=== PATIENT | female | born 1955 | race Caucasian/White ===

== ENCOUNTER 2021-05-10 06:00 | Outpatient (RCR) | payer MEDICARE, SELFPAY | END 2021-06-05 23:59 | disposition home or self-care (01) | LOC: TPT 06:00 | PROVIDERS: PCP Nurse Practitioner; Visit Provider Internal Medicine | DX: M99.09 Segmental and somatic dysfunction of abdomen and other regions (principal); M79.10 Myalgia, unspecified site; M54.31 Sciatica, right side | CPT/HCPCS: 97110; 97162 ==

== ENCOUNTER 2021-05-22 06:00 | Outpatient (RCR) | payer MEDICARE, SELFPAY | END 2021-06-05 23:59 | disposition home or self-care (01) | LOC: TPT 06:00 | PROVIDERS: PCP Nurse Practitioner; Referring Provider Nurse Practitioner Family; Visit Provider Nurse Practitioner Family | DX: M25.511 Pain in right shoulder (principal) | CPT/HCPCS: 97110; 97162 ==

== ENCOUNTER 2021-06-06 06:00 | Outpatient (RCR) | payer MEDICARE, SELFPAY | END 2021-07-05 23:59 | disposition home or self-care (01) | LOC: TPT 06:00 | PROVIDERS: PCP Nurse Practitioner; Visit Provider Internal Medicine | DX: M25.511 Pain in right shoulder (principal) | CPT/HCPCS: 97110; 97140 ==

== ENCOUNTER 2022-01-04 09:21 | Outpatient (CLI) | payer MEDICARE, MEDICAID, SELFPAY ==
--- NOTE | 2022-01-04 10:19 | XR_ITS ---
WS: [id number] Exam: XR hip RT 2-3V wo/w pel* [id number] Date/Time of Exam: 01/04/2022 10:29 AM Reason For Exam: HIP JOINT PAIN RIGHT Comparison 08/17/2018. No fracture or dislocation. Moderate degenerative narrowing of the joint compartment which has been p rogressive. Normal soft tissues. XR/XR hip RT 2-3V wo/w pel* [id number] IMPRESSION: 1. Moderate osteoarthritis which is been progressive. No fracture or dislocatio n.
== END 2022-01-04 09:22 | disposition home or self-care (01) ==
PROVIDERS: PCP Nurse Practitioner; Visit Provider Nurse Practitioner Family
DX: M16.11 Unilateral primary osteoarthritis, right hip (principal)
CPT/HCPCS: 73502

== ENCOUNTER 2022-01-16 13:14 | Outpatient (CLI) | payer MEDICARE, MEDICAID, SELFPAY ==
--- NOTE | 2022-01-16 13:29 | XR_ITS ---
WS: [email or web address] Right knee, 3 views, 01/16/2022 Clinical Data: PAIN IN R KNEE Comparison: Right knee, 08/17/2018. Findings: There is medial joint compartment narrowing with an osteophyte of the medial tibial plateau. There is posterior right patellar spurring. No fractures or dislocations are seen. The soft tissues are normal. XR/XR knee RT 3V* [id number] Impression: Mild osteoarthritis of the right knee. Kellgren-Renato Classification: grade 2 (minimal): definite osteophytes and p ossible joint space narrowing
== END 2022-01-16 13:15 | disposition home or self-care (01) ==
PROVIDERS: PCP Nurse Practitioner; Visit Provider Family Medicine
DX: M17.11 Unilateral primary osteoarthritis, right knee
CPT/HCPCS: 73562

== ENCOUNTER → 2022-02-05 12:51 | Outpatient (BNVA) | payer MEDICARE, MEDICAID, SELFPAY | PROVIDERS: PCP Nurse Practitioner; Referring Provider Nurse Practitioner Family; Visit Provider Orthopaedic Surgery | DX: M16.11 Unilateral primary osteoarthritis, right hip (principal) | CPT/HCPCS: 99203; 99204 ==

== ENCOUNTER 2022-02-20 06:00 | Outpatient (RCR) | payer MEDICARE, MEDICAID, SELFPAY | END 2022-03-05 23:59 | disposition home or self-care (01) | LOC: TPT 06:00 | PROVIDERS: PCP Nurse Practitioner; Referring Provider Nurse Practitioner Family; Visit Provider Nurse Practitioner Family | DX: M25.511 Pain in right shoulder (principal) | CPT/HCPCS: 97110; 97163 ==

== ENCOUNTER 2022-03-06 06:00 | Outpatient (RCR) | payer MEDICARE, MEDICAID, SELFPAY | END 2022-04-04 23:59 | disposition home or self-care (01) | LOC: TPT 06:00 | PROVIDERS: PCP Nurse Practitioner; Referring Provider Nurse Practitioner Family; Visit Provider Nurse Practitioner Family | DX: M25.511 Pain in right shoulder (principal) | CPT/HCPCS: 97110; 97140 ==

== ENCOUNTER 2022-04-05 06:00 | Outpatient (RCR) | payer MEDICARE, MEDICAID, SELFPAY | END 2022-05-05 23:59 | disposition home or self-care (01) | LOC: TPT 06:00 | PROVIDERS: PCP Nurse Practitioner; Referring Provider Nurse Practitioner Family; Visit Provider Nurse Practitioner Family | DX: M25.511 Pain in right shoulder (principal) | CPT/HCPCS: 97110; 97140; 97164 ==

== ENCOUNTER 2022-05-24 10:12 | Outpatient (CLI) | payer MEDICARE, MEDICAID, SELFPAY ==
--- NOTE | 2022-05-24 10:24 | MM_ITS ---
WS: [id number] BILATERAL SCREENING DIGITAL TOMOSYNTHESIS MAMMOGRAM WITH CAD HISTORY: SCREENING COMPARISON: 04/26/2020 and 10/15/2017 Bilateral CC and MLO views with tomosynthesis and synthetic mammography submitted. Computer aided det ection analyzed. Breast composition: The breasts are heterogeneously dense, which may obscure small masses. No suspici ous masses, microcalcifications or architectural distortion. Benign calcifications in each breast. MM/[place] [id number] IMPRESSION: BI-RADS: 2-Benign FOLLOW UP: 1 Year Follow-up
== END 2022-05-24 10:13 | disposition home or self-care (01) ==
LOC: RADSHAW 10:12
PROVIDERS: PCP Nurse Practitioner Family; Visit Provider Nurse Practitioner Family
DX: Z12.31 Encounter for screening mammogram for malignant neoplasm of breast (principal)
CPT/HCPCS: 77063; 77067

== ENCOUNTER 2022-06-05 06:00 | Outpatient (RCR) | payer MEDICARE, MEDICAID, SELFPAY | END 2022-06-05 23:59 | disposition home or self-care (01) | LOC: TPT 06:00 | PROVIDERS: PCP Nurse Practitioner Family; Visit Provider Orthopaedic Surgery | DX: Z47.1 Aftercare following joint replacement surgery (principal); Z96.641 Presence of right artificial hip joint | CPT/HCPCS: 97162 ==

== ENCOUNTER 2022-06-06 06:00 | Outpatient (RCR) | payer MEDICARE, MEDICAID, SELFPAY | END 2022-07-05 23:59 | disposition home or self-care (01) | LOC: TPT 06:00 | PROVIDERS: PCP Nurse Practitioner Family; Visit Provider Orthopaedic Surgery | DX: Z47.1 Aftercare following joint replacement surgery (principal); Z96.641 Presence of right artificial hip joint | CPT/HCPCS: 97110 ==

== ENCOUNTER 2022-07-06 06:00 | Outpatient (RCR) | payer MEDICARE, MEDICAID, SELFPAY | END 2022-08-05 23:59 | disposition home or self-care (01) | LOC: TPT 06:00 | PROVIDERS: PCP Nurse Practitioner Family; Visit Provider Orthopaedic Surgery | DX: Z47.1 Aftercare following joint replacement surgery (principal); Z96.641 Presence of right artificial hip joint | CPT/HCPCS: 97110 ==

== ENCOUNTER 2022-07-10 06:00 | Outpatient (RCR) | payer MEDICARE, MEDICAID, SELFPAY | END 2022-08-05 23:59 | disposition home or self-care (01) | LOC: TPT 06:00 | PROVIDERS: PCP Nurse Practitioner Family; Visit Provider Nurse Practitioner Family | DX: Z47.1 Aftercare following joint replacement surgery (principal); Z96.641 Presence of right artificial hip joint | CPT/HCPCS: 97110; 97163 ==

== ENCOUNTER → 2022-07-12 10:55 | Outpatient (BNVA) | payer MEDICARE, MEDICAID, SELFPAY | PROVIDERS: PCP Nurse Practitioner Family; Referring Provider Nurse Practitioner Family; Visit Provider Podiatrist Foot & Ankle Surgery | DX: M20.42 Other hammer toe(s) (acquired), left foot (principal); L84 Corns and callosities | CPT/HCPCS: 99203 ==

== ENCOUNTER 2022-08-06 06:00 | Outpatient (RCR) | payer MEDICARE, MEDICAID, SELFPAY | END 2022-09-04 23:59 | disposition home or self-care (01) | LOC: TPT 06:00 | PROVIDERS: PCP Nurse Practitioner Family; Visit Provider Orthopaedic Surgery | DX: Z47.1 Aftercare following joint replacement surgery (principal); Z96.641 Presence of right artificial hip joint | CPT/HCPCS: 97110 ==

== ENCOUNTER 2022-08-06 06:00 | Outpatient (RCR) | payer MEDICARE, MEDICAID, SELFPAY | END 2022-09-04 23:59 | disposition home or self-care (01) | LOC: TPT 06:00 | PROVIDERS: PCP Nurse Practitioner Family; Visit Provider Nurse Practitioner Family | DX: Z47.1 Aftercare following joint replacement surgery (principal); Z96.641 Presence of right artificial hip joint | CPT/HCPCS: 97110; 97140 ==

== ENCOUNTER → 2022-08-20 10:25 | Outpatient (BNVA) | payer MEDICARE, MEDICAID, SELFPAY | PROVIDERS: PCP Nurse Practitioner Family; Visit Provider Podiatrist Foot & Ankle Surgery | DX: M20.42 Other hammer toe(s) (acquired), left foot (principal) | CPT/HCPCS: 28011; A6219 ==

== ENCOUNTER 2022-09-05 06:00 | Outpatient (RCR) | payer MEDICARE, MEDICAID, SELFPAY | END 2022-10-05 23:59 | disposition home or self-care (01) | LOC: TPT 06:00 | PROVIDERS: PCP Nurse Practitioner Family; Visit Provider Nurse Practitioner Family | DX: M25.511 Pain in right shoulder (principal) | CPT/HCPCS: 97110; 97140 ==

== ENCOUNTER 2022-09-05 06:00 | Outpatient (RCR) | payer MEDICARE, MEDICAID, SELFPAY | END 2022-10-05 23:59 | disposition home or self-care (01) | LOC: TPT 06:00 | PROVIDERS: PCP Nurse Practitioner Family; Visit Provider Orthopaedic Surgery | DX: Z47.1 Aftercare following joint replacement surgery (principal); Z96.641 Presence of right artificial hip joint | CPT/HCPCS: 97110 ==

== ENCOUNTER 2022-10-06 06:00 | Outpatient (RCR) | payer MEDICARE, MEDICAID, SELFPAY | END 2022-11-05 23:59 | disposition home or self-care (01) | LOC: TPT 06:00 | PROVIDERS: PCP Nurse Practitioner Family; Visit Provider Nurse Practitioner Family | DX: Z47.1 Aftercare following joint replacement surgery (principal); Z96.641 Presence of right artificial hip joint | CPT/HCPCS: 97110; 97140 ==

== ENCOUNTER 2023-05-15 10:13 | Outpatient (CLI) | payer MEDICARE, MEDICAID, SELFPAY ==
--- NOTE | 2023-05-15 10:28 | XR_ITS ---
WS: [email or web address] XR shoulder LT min 2V* [id number] REASON FOR EXAM: L SHOULDER JOINT PAIN FINDINGS: No fracture or focal bone lesion. Acromioclavicular joint space is intact and relatively well preserved. Mild subchondral sclerosis and osteophytosis. Glenohumeral joint space is not well demonstrated on this examination. There is mild to moderate subc hondral sclerosis and osteophytosis of the humeral head and glenoid. There is significant sclerosis and cystic change in the greater tuberosity of the humerus. IMPRESSION: Moderate osteoarthritis of the glenohumeral joint. Significant rotator cuff tendon arthropathy.
== END 2023-05-15 10:14 | disposition home or self-care (01) ==
PROVIDERS: PCP Nurse Practitioner Family; Visit Provider Nurse Practitioner Family
DX: M19.012 Primary osteoarthritis, left shoulder (principal)
CPT/HCPCS: 73030

== ENCOUNTER 2023-05-28 06:00 | Outpatient (RCR) | payer MEDICARE, MEDICAID, SELFPAY | END 2023-06-05 23:59 | disposition home or self-care (01) | LOC: TPT 06:00 | PROVIDERS: PCP Nurse Practitioner Family; Visit Provider Nurse Practitioner Family | DX: M25.512 Pain in left shoulder (principal) | CPT/HCPCS: 97110; 97140; 97163 ==

== ENCOUNTER 2023-06-06 06:00 | Outpatient (RCR) | payer MEDICARE, MEDICAID, SELFPAY | END 2023-07-05 23:59 | disposition home or self-care (01) | LOC: TPT 06:00 | PROVIDERS: PCP Nurse Practitioner Family; Visit Provider Nurse Practitioner Family | DX: M25.512 Pain in left shoulder (principal) | CPT/HCPCS: 97110; 97140 ==

== ENCOUNTER 2023-07-06 06:00 | Outpatient (RCR) | payer MEDICARE, MEDICAID, SELFPAY | END 2023-08-05 23:59 | disposition home or self-care (01) | LOC: TPT 06:00 | PROVIDERS: PCP Nurse Practitioner Family; Visit Provider Nurse Practitioner Family | DX: M25.512 Pain in left shoulder (principal); M25.551 Pain in right hip | CPT/HCPCS: 97110; 97140; 97164 ==

== ENCOUNTER 2023-08-06 06:00 | Outpatient (RCR) | payer MEDICARE, MEDICAID, SELFPAY | END 2023-09-04 23:59 | disposition home or self-care (01) | LOC: TPT 06:00 | PROVIDERS: PCP Nurse Practitioner Family; Visit Provider Nurse Practitioner Family | DX: M25.512 Pain in left shoulder (principal); M25.551 Pain in right hip | CPT/HCPCS: 97164 ==

== ENCOUNTER 2023-08-06 06:00 | Outpatient (RCR) | payer MEDICARE, MEDICAID, SELFPAY | END 2023-09-04 23:59 | disposition home or self-care (01) | LOC: TPT 06:00 | PROVIDERS: PCP Nurse Practitioner Family; Visit Provider Orthopaedic Surgery | DX: Z96.641 Presence of right artificial hip joint (principal) | CPT/HCPCS: 97110; 97140 ==

== ENCOUNTER → 2023-09-02 08:55 | Outpatient (BNVA) | payer MEDICARE, MEDICAID, SELFPAY | PROVIDERS: PCP Nurse Practitioner Family; Visit Provider Student in an Organized Health Care Education/Training Program | DX: M75.42 Impingement syndrome of left shoulder | CPT/HCPCS: 20610; 99214; J3301 ==

== ENCOUNTER 2023-09-05 06:00 | Outpatient (RCR) | payer MEDICARE, MEDICAID, SELFPAY | END 2023-10-05 23:59 | disposition home or self-care (01) | LOC: TPT 06:00 | PROVIDERS: PCP Nurse Practitioner Family; Visit Provider Orthopaedic Surgery | DX: Z47.1 Aftercare following joint replacement surgery (principal); Z96.641 Presence of right artificial hip joint | CPT/HCPCS: 97110 ==

== ENCOUNTER 2023-09-16 06:00 | Outpatient (RCR) | payer MEDICARE, MEDICAID, SELFPAY | END 2023-10-05 23:59 | disposition home or self-care (01) | LOC: TPT 06:00 | PROVIDERS: PCP Nurse Practitioner Family; Visit Provider Student in an Organized Health Care Education/Training Program | DX: M25.512 Pain in left shoulder (principal) | CPT/HCPCS: 97110; 97140; 97162 ==

== ENCOUNTER 2023-10-06 06:00 | Outpatient (RCR) | payer MEDICARE, MEDICAID, SELFPAY | END 2023-11-05 23:59 | disposition home or self-care (01) | LOC: TPT 06:00 | PROVIDERS: PCP Nurse Practitioner Family; Visit Provider Student in an Organized Health Care Education/Training Program | DX: M25.112 Fistula, left shoulder (principal) | CPT/HCPCS: 97110; 97140 ==

== ENCOUNTER 2023-10-06 06:00 | Outpatient (RCR) | payer MEDICARE, MEDICAID, SELFPAY | END 2023-11-05 23:59 | disposition home or self-care (01) | LOC: TPT 06:00 | PROVIDERS: PCP Nurse Practitioner Family; Visit Provider Orthopaedic Surgery | DX: Z47.1 Aftercare following joint replacement surgery (principal); Z96.641 Presence of right artificial hip joint | CPT/HCPCS: 97110 ==

== ENCOUNTER 2023-11-06 06:00 | Outpatient (RCR) | payer MEDICARE, MEDICAID, SELFPAY | END 2023-12-04 23:59 | disposition home or self-care (01) | LOC: TPT 06:00 | PROVIDERS: PCP Nurse Practitioner Family; Visit Provider Student in an Organized Health Care Education/Training Program | DX: M25.512 Pain in left shoulder (principal) | CPT/HCPCS: 97110; 97140 ==

== ENCOUNTER 2023-11-06 06:00 | Outpatient (RCR) | payer MEDICARE, MEDICAID, SELFPAY | END 2023-12-04 23:59 | disposition home or self-care (01) | LOC: TPT 06:00 | PROVIDERS: PCP Nurse Practitioner Family; Visit Provider Orthopaedic Surgery | DX: Z47.1 Aftercare following joint replacement surgery (principal); Z96.641 Presence of right artificial hip joint | CPT/HCPCS: 97110 ==

== ENCOUNTER 2023-12-05 06:00 | Outpatient (RCR) | payer MEDICARE, MEDICAID, SELFPAY | END 2024-01-04 23:59 | disposition home or self-care (01) | LOC: TPT 06:00 | PROVIDERS: PCP Nurse Practitioner Family; Visit Provider Student in an Organized Health Care Education/Training Program | DX: M25.512 Pain in left shoulder (principal) | CPT/HCPCS: 97110; 97140; 97162 ==

== ENCOUNTER 2023-12-05 06:00 | Outpatient (RCR) | payer MEDICARE, MEDICAID, SELFPAY | END 2024-01-04 23:59 | disposition home or self-care (01) | LOC: TPT 06:00 | PROVIDERS: PCP Nurse Practitioner Family; Visit Provider Orthopaedic Surgery | DX: Z47.1 Aftercare following joint replacement surgery (principal); Z96.641 Presence of right artificial hip joint | CPT/HCPCS: 97110 ==

== ENCOUNTER → 2023-12-30 08:19 | Outpatient (BNVA) | payer MEDICARE, MEDICAID, SELFPAY | PROVIDERS: PCP Nurse Practitioner Family; Visit Provider Student in an Organized Health Care Education/Training Program | DX: M75.42 Impingement syndrome of left shoulder (principal) | CPT/HCPCS: 20610; 99213; J3301 ==

== ENCOUNTER 2024-01-05 06:00 | Outpatient (RCR) | payer MEDICARE, MEDICAID, SELFPAY | END 2024-02-03 23:59 | disposition home or self-care (01) | LOC: TPT 06:00 | PROVIDERS: PCP Nurse Practitioner Family; Visit Provider Orthopaedic Surgery | DX: Z47.1 Aftercare following joint replacement surgery (principal); Z96.641 Presence of right artificial hip joint | CPT/HCPCS: 97110 ==

== ENCOUNTER 2024-01-05 06:00 | Outpatient (RCR) | payer MEDICARE, MEDICAID, SELFPAY | END 2024-02-03 23:59 | disposition home or self-care (01) | LOC: TPT 06:00 | PROVIDERS: PCP Nurse Practitioner Family; Visit Provider Student in an Organized Health Care Education/Training Program | DX: M25.512 Pain in left shoulder (principal) | CPT/HCPCS: 97110; 97140 ==

== ENCOUNTER 2024-01-28 10:00 | Outpatient (CLI) | payer MEDICARE, MEDICAID, SELFPAY ==
--- NOTE | 2024-01-28 10:15 | MR_ITS ---
WS: [id number] MRI LEFT SHOULDER NONCONTRAST TECHNIQUE: Sagittal T2, coronal T1, T2 and proton density imaging. Axial gradient PDE imaging. CLINICAL INFORMATION: left shoulder pain COMPARISON: None. FINDINGS: Advanced degenerative changes AC joint with narrowing of the subacromial space. Impingement distal jane praspinatus with chronic thinning. Evidence of prior rotator cuff repair. Distal supraspinatus appear s intact. Infraspinatus appears intact. Normal teres minor. Subscapularis appears intact distally. Small biceps tendon visualized in the bici pital groove. Intra-articular biceps tendon appears intact where visualized. Normal bone marrow signa l in the glenoid. IMPRESSION: 1. Advanced arthritis AC joint with narrowing of the subacromial space. 2. Prior rotator cuff repair with susceptibility artifact. 3. Rotator cuff repair appears intact. Significant chronic thinning of the distal supraspinatus. 4. Normal teres minor and subscapularis. 5. Small biceps tendon appears intact within the bicipital groove. 6. No other acute findings.
== END 2024-01-28 10:01 | disposition home or self-care (01) ==
LOC: RAD 10:03
PROVIDERS: PCP Nurse Practitioner Family; Visit Provider Student in an Organized Health Care Education/Training Program
DX: M75.42 Impingement syndrome of left shoulder (principal); M19.012 Primary osteoarthritis, left shoulder
CPT/HCPCS: 73221

== ENCOUNTER 2024-02-04 06:00 | Outpatient (RCR) | payer MEDICARE, MEDICAID, SELFPAY | END 2024-03-05 23:59 | disposition home or self-care (01) | LOC: TPT 06:00 | PROVIDERS: PCP Nurse Practitioner Family; Visit Provider Orthopaedic Surgery | DX: Z47.1 Aftercare following joint replacement surgery (principal); Z96.641 Presence of right artificial hip joint | CPT/HCPCS: 97110 ==

== ENCOUNTER 2024-02-04 06:00 | Outpatient (RCR) | payer MEDICARE, MEDICAID, SELFPAY | END 2024-03-05 23:59 | disposition home or self-care (01) | LOC: TPT 06:00 | PROVIDERS: PCP Nurse Practitioner Family; Visit Provider Student in an Organized Health Care Education/Training Program | DX: M25.512 Pain in left shoulder (principal) | CPT/HCPCS: 97110; 97140 ==

== ENCOUNTER → 2024-02-13 10:05 | Outpatient (BNVA) | payer MEDICARE, MEDICAID, SELFPAY | PROVIDERS: PCP Nurse Practitioner Family; Visit Provider Student in an Organized Health Care Education/Training Program | DX: M75.42 Impingement syndrome of left shoulder (principal); Z09 Encounter for follow-up examination after completed treatment for conditions other than malignant neoplasm | CPT/HCPCS: 99213 ==

== ENCOUNTER → 2024-03-25 14:15 | Outpatient (BNVA) | payer MEDICARE, MEDICAID, SELFPAY | PROVIDERS: PCP Nurse Practitioner Family; Visit Provider Student in an Organized Health Care Education/Training Program | DX: M75.42 Impingement syndrome of left shoulder (principal) | CPT/HCPCS: 20610; 99213; J3301 ==

== ENCOUNTER 2024-04-16 21:08 | Emergency (ER) | payer MEDICARE, MEDICAID, SELFPAY ==
[2024-04-16 21:09] VITALS: BP 181/96; PULSE 96; RESP 16; TEMP 36.3; O2SAT 98; BMI 29.8
--- NOTE | 2024-04-16 22:10 | ED_ITS ---
HPI - Nausea/Vomiting/Diarrhea 2 General: Chief complaint: Nausea/Vomiting/Diarrhea Stated complaint: v/n sweating Time Seen by Provider: 04/16/24 22:08 History of Present Illness: 68-year-old female with a history of hyp othyroidism, diabetes, hypertension who presents to the emergency room with nausea vomiting and some diarrhea. She is having some lower abdominal pain. No fevers. Altered mental status. No focal motor deficits. Review of Systems 2 Narrative: Constitutional symptoms: Negative except as documented in HPI. Skin symptoms: Negative except as documented in HPI. Eye symptoms: Negative except as documented in HPI. ENMT symptoms: Negative except as documented in HPI. Respiratory symptoms: Negative except as documented in HPI. Cardiovascular symptoms: Negative except as documented in HPI. Gastrointestinal symptoms: Negative except as documented in HPI. Genitourinary symptoms: Negative except as documented in HPI. Musculoskeletal symptoms: Negative except as documented in HPI. Neurologic symptoms: Negative except as documented in HPI. Psychiatric symptoms: Negative except as documented in HPI. Endocrine symptoms: Negative except as documented in HPI. PFSH ED 2 PFSH: Medical History Diabetes Social History Smoking and tobacco/nicotine status: former use of tobacco/nicotine Alcohol intake: never Substance/Drug Use: never Physical Exam 2 Narrative: EXAM NARRATIVE: General: Alert, no acute distress. Skin: Warm, dry. Head: Normocephalic, atraumatic. Neck: Supple, trachea midline. Eye: Extraocular movements are intact. Ears, nose, mouth and throat: Tacky oral mucosa Cardiovascular: Regular, Normal peripheral perfusion. Respiratory: Lungs are clear to auscultation, respirations are non-labored, breath sounds are equal, Symmetrical chest wall expansion. Gastrointestinal: Soft, Nontender, Non distended Musculoskeletal: Normal ROM, no deformity. Neurological: Alert and oriented, No focal neurological deficit observed. Psychiatric: Cooperative, appropriate mood & affect. Course 2 Vital Signs: Vital signs: Vital Signs Temperature 97.4 F L 04/16/24 21:09 Pulse Rate 96 04/16/24 21:09 Respiratory Rate 15 04/16/24 23:57 Blood Pressure 181/96 04/16/24 21:09 Pulse Oximetry 98 04/16/24 21:09 Oxygen Delivery Me thod Room Air 04/16/24 21:09 MDM - Nausea/Vomiting/Diarrhea Medical Decision Making Medical decision making: Differential diagnosis for this patient with nausea and vomiting including but not limited to and based on the above HPI, review of systems and physical exam: Urinary tract infection. Appendicitis. Cholecystis. colitis. small bowel obstruction. crohn's flare. pancreatitis. gastritis. peptic ulcer. cyclic vomiting. Viral illness. Influenza. COVID. - Workup - labwork and imaging ordered to evaluate, rule in and rule out above pathologies. Lab Review: Laboratory results were reviewed and interpreted by myself the emergency room physician. Patient does have some leukocytosis with a white count of 17,000. Given that some lower abdominal pain a CT scan was ordered to rule out diverticulitis or other pathologies. Urinalysis does show infection. BUN and creatinine are [address] of the abdomen pelvis: Some fluid in the stomach which may reflect gastritis. Diverticulosis. This was reviewed and interpreted by myself the emergency room physician. I also reviewed the radiology report. I reviewed the patient's medical record. Reexamination: Patient says she feels much better. She has been tolerating fluids. No increased work of breathing. No altered mental status. No focal motor deficits. Assessment and plan: Gastroenteritis Urinary tract infection Dehydration ?Normal saline bolus and IV Zofran with improvement in symptoms. I also gave her a dose of morphine for abdominal pain. - Discharged home - Discussed plan with patient. Answered any questions. - Evaluation and treatment of this problem were appropriate in the emergency setting. Lab Data 04/16/24 22:28 04/16/24 22:28 Radiology Impressions Abdomen/Pelvis CT 04/16/24 23:21 IMPRESSION: 1. Mildly prominent fluid in the stomach without dilation, may reflect a mild gastritis, please correlate clinically 2. Bibasilar atelectasis versus minimal infiltrate. 3. Hepatic steatosis. 4. Cholecystectomy. 5. Diverticulosis without diverticulitis. 6. Small umbilical hernia containing omentum without bowel. 7. Right hip arthroplasty changes. Laboratory Results WBC 16.79 10^3/uL (3.29-11.43) H 04/16/24 22:28 RBC 5.13 10^6/uL (3.85-5.65) 04/16/24 22:28 Hgb 15.30 g/dL (11.27-16.99) 04/16/24: Hct 45.7 % (36-47) 04/16/24: MCV 89.1 fl (85-98) 04/16/24: MCH 29.8 pg (27-33) 04/16/24: MCHC 33.5 g/dL (30-55) 04/16/24: RDW 13.1 % (12.1-15.1) 04/16/24: Plt Count 237 10^3/cmm (157-399) 04/16/24: MPV 9.0 fL (7.4-10.4) 04/16/24: Neut % (Auto) 91.5 % 04/16/24: Lymph % (Auto) 2.7 % 04/16/24: [place] % (Auto) 5.0 % 04/16/24: Eos % (Auto) 0.1 % 04/16/24 Baso % (Auto) 0.3 % 04/16/24: Neut # (Auto) 15.36 10^3/uL (1.8-7.7) H 04/16/24: Lymph # (Auto) 0.5 10^3/uL (0.8-4.8) L 04/16/24: [place] # (Auto) 0.8 10^3/uL (0.2-0.9) 04/16/24: Eos # (Auto) 0.0 10^3/uL (0.0-0.8) 04/16/24: Baso # (Auto) 0.1 10^3/uL (0.0-0.1) 04/16/24: Nucleated RBC % (auto) 0 % 04/16/24 Nucleated RBCs # 0.0 /100WBC 04/16/24: Sodium 141 mmol/L (136-145) 04/16/24: Potassium 4.1 mmol/L (3.5-5.1) 04/16/24: Chloride 99 mmol/L (98-107) 04/16/24: Carbon Dioxide 25 mmol/L (22-29) 04/16/24 22:28 Anion Gap 21.1 (5-19) H 04/16/24 22:28 BUN 13 mg/dL (8-23) 04/16/24 22: Creatinine 0.6 mg/dL (0.5-0.9) 04/16/24 22: GFR Calculation 99.1 mL/min (90-130) 04/16/24 22: Glucose 187 mg/dL (65-115) H 04/16/24 22: Calculated Osmolality 297 mOsm/kg (285-295) H 04/16/24 22:28 Lactic Acid 1.6 mmol/L (0.5-2.2) 04/16/24 22: Calcium 9.7 mg/dL (8.5-10.5) 04/16/24 22: Total Bilirubin 0.7 mg/dL (0.15-1.2) 04/16/24 22: AST 29 U/L (0-32) 04/16/24 22: ALT 33 U/L (0-33) 04/16/24 22:28 Alkaline Phosphatase 92 U/L (35-105) 04/16/24 22:28 C-Reactive Protein 3.0 mg/L (0.0-4.9) 04/16/24 22: Total Protein 8.0 g/dL (6.6-8.7) 04/16/24 22: Albumin 4.8 g/dL (3.5-5.2) 04/16/24 22: Globulin 3.2 g/dL (1.3-4.6) 04/16/24 22: Lipase 77 U/L (13-60) H 04/16/24 22:28 Urine Color Yellow (Yellow) 04/17/24 01: Urine Appearance Cloudy (CLEAR) A 04/17/24 01: Urine pH 6.5 (5-7) 04/17/24: Ur Specific [place] 1.005 (1.005-1.030) 04/17/24 01:28 Urine Protein 1+ (Negative) H 04/17/24 01:28 Urine Glucose (UA) Norm (Normal) 04/17/24 01: Urine Ketones 1+ (Negative) H 04/17/24 01:28 Urine Blood 2+ (Negative) H 04/17/24 01:28 Urine Nitrate Negative (Negative) 04/17/24 01:28 Urine Bilirubin Neg (Negative) 04/17/24 01:28 Urine Urobilinogen Neg mg/dL (Negative) 04/17/24 01:28 Ur Leukocyte Esterase 2+ (Negative) H 04/17/24 01:28 Urine RBC 5-10 /hpf (0-2) H 04/17/24 01:28 Urine WBC 15-25 /hpf (0-5) H 04/17/24 01:28 Ur Squamous Epith Cells 5-10 /hpf (0-5) H 04/17/24 01:28 Amorphous Sediment Not Reportable 04/17/24 01:28 Urine Bacteria 2+ /hpf (NONE) H 04/17/24 01:28 Urine Mucus Trace /hpf 04/17/24 01:28 All radiology interpretation(s) finalized by discharge Discharge Plan Discharge Patient Disposition: Home Clinical Impression: Gastroenteritis, Dehydration, Urinary tract infection Condition: Stable Prescriptions: New ondansetron 8 mg tablet,disintegrating 8 mg PO .q6 PRN (Reason: nausea and vomiting) Qty: 14 0RF cephalexin 500 mg capsule 500 mg PO BID 5 Days Qty: 10 0RF No Action metformin 500 mg tablet 500 mg PO DAILY levothyroxine 50 mcg capsule 50 mcg PO DAILY simvastatin 10 mg tablet 10 mg PO DAILY cyclobenzaprine 5 mg tablet PO aspirin [Adult Low Dose Aspirin] 81 mg tablet,delayed release (DR/EC) 81 mg PO DAILY ascorbic acid (vitamin C) 1,000 mg capsule 1 g PO DAILY Quercetin Complex 500-250-33 mg capsule PO DAILY garlic 1,000 mg capsule 1,000 mg PO DAILY Hair, Skin and Nails (biotin) 10,000 mcg tablet,chewable PO DAILY Discharge Orders: Discharge ED (Routine); Ordered 04/17/24 Ordered By: Gerri Cook Referrals: Elif Ahmadi FNP [Primary Care Provider] - Discharge Diet: Advance as tolerated Discharge Activity: Increase activity as tolerated Patient Instructions: Urinary Tract Infection in Women (ED) Activity Restrictions/Additional Instructions: Thank you for choosing [facility] for your healthcare needs today. Please realize this is an emergency room and that we are providing you with a medical screening exam and this may not be complete and all inclusive of all the testing and or work up that you may need to determine your ailment or severity of your illness. You have been screened and evaluated and felt safe for discharge. Health conditions do change or evolve sometimes and as such it is important that you follow up with your Primary Doctor to be re checked, 3-5 days is a general good time frame for follow up. You are always welcome to return to the ED for re assessment if your symptoms are worsening or you have new concerns Coding Level of Care Code ED Passport Application Examiner for Dmitriy Staley
[2024-04-16 22:13] VITALS: BP 173/80; PULSE 96; RESP 15; O2SAT 97
[2024-04-16 22:30] VITALS: BP 171/86; PULSE 92; RESP 18; O2SAT 95
[2024-04-16 22:35] LABS: Basophils # 0.1 10^3/uL (0.0-0.1); Basophils % 0.3 %; Eosinophils % 0.1 %; Hematocrit 45.7 % (36-47); Lymphocytes # 0.5 10^3/uL (0.8-4.8); Lymphocytes % 2.7 %; Mean Corpuscular HGB Conc 33.5 g/dL (30-55); Mean Corpuscular Hemoglobin 29.8 pg (27-33); Mean Corpuscular Volume 89.1 fl (85-98); Monocytes # 0.8 10^3/uL (0.2-0.9); Neutrophils # 15.36 10^3/uL (1.8-7.7); Neutrophils % 91.5 %; Nucleated Red Blood Cells % 0 %; Platelet Count 237 10^3/cmm (157-399); Red Blood Count 5.13 10^6/uL (3.85-5.65); Red Cell Distribution Width 13.1 % (12.1-15.1); White Blood Count 16.79 10^3/uL (3.29-11.43)
[2024-04-16 22:55] LABS: Alanine Aminotransferase 33 U/L (0-33); Albumin Level 4.8 g/dL (3.5-5.2); Alkaline Phosphatase 92 U/L (35-105); Anion Gap 21.1 (5-19); Aspartate Amino Transferase 29 U/L (0-32); Blood Urea Nitrogen 13 mg/dL (8-23); Calcium 9.7 mg/dL (8.5-10.5); Carbon Dioxide 25 mmol/L (22-29); Chloride 99 mmol/L (98-107); Creatinine Clr Calc Pharmacy 67.4642; Globulin 3.2 g/dL (1.3-4.6); Glomerular Filtration Rate 99.1 mL/min (90-130); Glucose 187 mg/dL (65-115); Lactic Sepsis W/Reflex 1.6 mmol/L (0.5-2.2); Lipase 77 U/L (13-60); Osmolality Calculated 297 mOsm/kg (285-295); Potassium 4.1 mmol/L (3.5-5.1); Sodium 141 mmol/L (136-145); Total Bilirubin 0.7 mg/dL (0.15-1.2)
[2024-04-16 23:00] VITALS: BP 165/82; PULSE 94; RESP 16; O2SAT 94
--- NOTE | 2024-04-16 23:21 | CTR_ITS ---
PROCEDURE INFORMATION: Exam: CT Abdomen And Pelvis With Contrast Exam date and time: 04/16/2024 11:36 PM Age: 68 years old Clinical indication: Nausea and vomiting; Abdominal pain; Generalized; Prior surgery; Surgery date: 6+ months; Surgery type: Gb. Hernia repair. [place]. Patient HX: Diffuse abd pain with n/v/d. TECHNIQUE: Imaging protocol: Computed tomography of the abdomen and pelvis with contrast. Radiation optimization: All CT scans at this facility use at least one of these dose optimization techniques: automated exposure control; mA and/or kV adjustment per patient size (includes targeted exams where dose is matched to clinical indication); or iterative reconstruction. Contrast material: OMNI 350; Contrast volume: 100 ml; Contrast route: INTRAVENOUS (IV); COMPARISON: CR XR hip RT 2-3V wo/w pel* [id number] 01/04/2022 10:27 AM RADIATION DOSE METRICS: Total DLP (mGy-cm): 814.67 FINDINGS: Lungs: Bibasilar atelectasis versus minimal infiltrate. Liver: Hepatic steatosis. Gallbladder and biliary ducts: Cholecystectomy. Pancreas: Normal. No ductal dilation. Spleen: Normal. No splenomegaly. Adrenal glands: Normal. No mass. Kidneys and ureters: Normal. No hydronephrosis. Stomach and bowel: Mildly prominent fluid in the stomach without dilation, may reflect a mild gastritis, please correlate clinically. Diverticulosis without diverticulitis. Appendix: No evidence of appendicitis. Intraperitoneal space: Unremarkable. No free air. No significant fluid collection. Vasculature: Unremarkable. No abdominal aortic aneurysm. Lymph nodes: Unremarkable. No enlarged lymph nodes. Urinary bladder: Unremarkable as visualized. Reproductive: Unremarkable as visualized. Bones/joints: Right hip arthroplasty changes. Soft tissues: Small umbilical hernia containing omentum without bowel. CT/CT abdomen pelvis w con* [id number] IMPRESSION: 1. Mildly prominent fluid in the stomach without dilation, may reflect a mild gastritis, please correlate clinically 2. Bibasilar atelectasis versus minimal infiltrate. 3. Hepatic steatosis. 4. Cholecystectomy. 5. Diverticulosis without diverticulitis. 6. Small umbilical hernia containing omentum without bowel. 7. Right hip arthroplasty changes.
[2024-04-16] MEDS: ondansetron 2 mg/ML SDV 2 mL 8 MG IVP (23:24)
[2024-04-16] MEDS: sodium chloride 0.9% 1,000 ML 999 ML IV (23:24)
[2024-04-16 23:30] VITALS: BP 179/91; PULSE 97; RESP 13; O2SAT 95
[2024-04-16] MEDS: iohexol 350 mg/mL 500 mL Btl (per mL) IV (23:37)
[2024-04-16 23:57] VITALS: RESP 15
[2024-04-16] MEDS: morphine 4 mg/mL SDV 1 mL IVP (23:57)
[2024-04-17] VITALS: BP 182/91; PULSE 92; RESP 10; O2SAT 93
[2024-04-17 00:30] VITALS: BP 165/89; PULSE 88; RESP 14; O2SAT 92
[2024-04-17 01:00] VITALS: BP 164/88; PULSE 86; RESP 17; O2SAT 92
[2024-04-17 01:30] VITALS: BP 134/85; PULSE 98; RESP 24; O2SAT 92
[2024-04-17 01:55] LABS: Bilirubin Urine Neg (Negative); Blood Urine 2+ (Negative); Glucose Urine UA Norm (Normal); Ketones Urine 1+ (Negative); Leukocyte Esterase Urine 2+ (Negative); Nitrate Urine Negative (Negative); Protein Urine 1+ (Negative); Specific Gravity, Urine 1.005 (1.005-1.030); Urine Appearance Cloudy (CLEAR); Urine Color Yellow (Yellow); Urobilinogen Urine Neg (Negative); pH Urine 6.5 (5-7)
[2024-04-17 01:56] LABS: Add Urine Culture? Yes; Bacteria Urine 2+ /hpf; Mucus Urine TRACE /hpf; WBC Urine 15-25 /hpf (0-5)
[2024-04-17 02:00] VITALS: BP 156/82; PULSE 91; RESP 16; O2SAT 95
[2024-04-17] MEDS: cefTRIAXone 1,000 mg SDV 1000 MG IVP (02:13)
== END 2024-04-17 02:35 | disposition home or self-care (01) ==
PROVIDERS: Emergency Provider Emergency Medicine; PCP Nurse Practitioner Family
DX: K52.9 Noninfective gastroenteritis and colitis, unspecified (principal); E86.0 Dehydration; N39.0 Urinary tract infection, site not specified; Z79.82 Long term (current) use of aspirin; E11.9 Type 2 diabetes mellitus without complications; Z87.891 Personal history of nicotine dependence; I10 Essential (primary) hypertension
CPT/HCPCS: 36415; 74177; 80053; 81001; 83605; 83690; 85025; 86140; 87086; 96374; 96375; 99285; J0696; J2270; J2405; J7030; Q9967

== ENCOUNTER → 2024-04-19 08:57 | Outpatient (BNVA) | payer MEDICARE, MEDICAID, SELFPAY | PROVIDERS: PCP Nurse Practitioner Family; Visit Provider Podiatrist Foot & Ankle Surgery | DX: M20.41 Other hammer toe(s) (acquired), right foot; M20.42 Other hammer toe(s) (acquired), left foot; M77.41 Metatarsalgia, right foot; M77.42 Metatarsalgia, left foot; M25.871 Other specified joint disorders, right ankle and foot; M25.872 Other specified joint disorders, left ankle and foot | CPT/HCPCS: 73630; 99203 ==

== ENCOUNTER → 2024-05-26 09:03 | Outpatient (BNVA) | payer MEDICARE, MEDICAID, SELFPAY | PROVIDERS: PCP Nurse Practitioner Family; Visit Provider Podiatrist Foot & Ankle Surgery | DX: M20.41 Other hammer toe(s) (acquired), right foot; M20.42 Other hammer toe(s) (acquired), left foot; M77.41 Metatarsalgia, right foot; M77.42 Metatarsalgia, left foot; E11.42 Type 2 diabetes mellitus with diabetic polyneuropathy; M25.871 Other specified joint disorders, right ankle and foot; M25.872 Other specified joint disorders, left ankle and foot; Z79.84 Long term (current) use of oral hypoglycemic drugs | CPT/HCPCS: 99213 ==

== ENCOUNTER → 2024-05-28 10:26 | Outpatient (BNVA) | payer MEDICARE, MEDICAID, SELFPAY | PROVIDERS: PCP Nurse Practitioner Family; Visit Provider Physician Assistant | DX: M75.41 Impingement syndrome of right shoulder; M19.011 Primary osteoarthritis, right shoulder | CPT/HCPCS: 20610; 73030; 99213; J3301 ==

== ENCOUNTER → 2024-07-06 15:56 | Outpatient (BNVA) | payer MEDICARE, MEDICAID, SELFPAY | PROVIDERS: PCP Nurse Practitioner Family; Visit Provider Student in an Organized Health Care Education/Training Program | DX: M75.42 Impingement syndrome of left shoulder (principal) | CPT/HCPCS: 20610; 99213; J3301 ==

== ENCOUNTER → 2024-08-31 15:13 | Outpatient (BNVA) | payer MEDICARE, MEDICAID, SELFPAY | PROVIDERS: PCP Nurse Practitioner Family; Visit Provider Physician Assistant | DX: M75.41 Impingement syndrome of right shoulder (principal); M19.011 Primary osteoarthritis, right shoulder | CPT/HCPCS: 20610; 99213; J3301 ==

== ENCOUNTER 2024-09-15 10:16 | Outpatient (CLI) | payer MEDICARE, MEDICAID, SELFPAY ==
--- NOTE | 2024-09-15 10:15 | MR_ITS ---
WS: [email or web address] MRI RIGHT SHOULDER NONCONTRAST TECHNIQUE: Sagittal T2, coronal T1, T2 and proton density imaging. Axial gradient PDE imaging. CLINICAL INFORMATION: rotator cuff impingement COMPARISON: None. FINDINGS: Prior postoperative changes rotator cuff repair with rotator cuff anchors. Susceptibility artifact de grades images. Advanced arthritis of the AC joint with moderate downsloping of the acromion. Marked n arrowing of the subacromial space. Advanced chronic thinning of the distal supraspinatus and infraspi natus with tendinopathy. Acromial impingement on the distal supraspinatus and infraspinatus. Distal tendon repair appears intact. Normal teres minor. Thinning of the subscapularis tendon which a ppears intact. Biceps tendon not present in the bicipital groove. Intra-articular biceps tendon appea rs intact. Advanced degenerative narrowing glenohumeral articulation. Chronic degenerative fraying of the glenoid labrum. No significant joint effusion. MR/MR shoulder RT wo con* [id number] IMPRESSION: 1. Prior postoperative changes rotator cuff repair with humeral head anchors. 2. Marked thinning of the distal supraspinatus and infraspinatus with marked n arrowing of the subacromial space. Impingement of the distal supraspinatus and infraspinatus with tendinopathy. 3. Distal tendon repair appears intact. 4. Biceps tendon absent from the bicipital groove likely postoperative. 5. Diminutive but intact intra-articular biceps tendon. 6. Advanced degenerative narrowing of the glenohumeral articulation. 7. Degenerative arthritis AC joint with moderate downsloping of the acromion a nd severe narrowing of the subacromial space.
== END 2024-09-15 10:17 | disposition home or self-care (01) ==
LOC: RAD 10:16
PROVIDERS: PCP Nurse Practitioner Family; Visit Provider Physician Assistant
DX: M19.011 Primary osteoarthritis, right shoulder (principal); M75.41 Impingement syndrome of right shoulder; M75.91 Shoulder lesion, unspecified, right shoulder; Z98.890 Other specified postprocedural states
CPT/HCPCS: 73221

== ENCOUNTER → 2024-10-21 10:15 | Outpatient (BNVA) | payer MEDICARE, MEDICAID, SELFPAY | PROVIDERS: PCP Nurse Practitioner Family; Visit Provider Student in an Organized Health Care Education/Training Program | DX: M75.42 Impingement syndrome of left shoulder (principal); M19.011 Primary osteoarthritis, right shoulder; Z09 Encounter for follow-up examination after completed treatment for conditions other than malignant neoplasm | CPT/HCPCS: 20610; 99214; J3301 ==

== ENCOUNTER 2024-10-27 14:30 | Outpatient (CLI) | payer MEDICARE, MEDICAID, SELFPAY ==
--- NOTE | 2024-10-27 14:40 | MM_ITS ---
WS: [email or web address] BILATERAL 3D TOMOSYNTHESIS DIGITAL SCREENING MAMMOGRAPHY WITH CAD CLINICAL INFORMATION: SCREENING HISTORY: Screening mammogram. No current complaints. COMPARISON: 2021 TECHNIQUE: Bilateral CC and MLO views. FINDINGS: The breasts are composed of heterogeneous fibroglandular density tissue, which can limit the detectio n of small underlying mass lesions. No suspicious mass, asymmetry, calcifications, or architectural d istortion. No evidence of malignancy. MM/MM [facility] tomosynthesis [id number] IMPRESSION: DENSITY: The breasts are heterogeneously dense, which may obscure small masses. BI-RADS: 2 - Benign FOLLOW UP: 1 Year Follow-up Recommend return to annual screening mammography.
== END 2024-10-27 14:31 | disposition home or self-care (01) ==
LOC: MOBLMAM 14:35
PROVIDERS: PCP Nurse Practitioner Family; Visit Provider Nurse Practitioner Family
DX: Z12.31 Encounter for screening mammogram for malignant neoplasm of breast (principal); R92.333 Mammographic heterogeneous density, bilateral breasts; R92.323 Mammographic fibroglandular density, bilateral breasts
CPT/HCPCS: 77063; 77067

== ENCOUNTER → 2024-11-30 08:00 | Outpatient (BNVA) | payer MEDICARE, MEDICAID, SELFPAY | PROVIDERS: PCP Nurse Practitioner Family; Visit Provider Podiatrist Foot & Ankle Surgery | DX: M19.072 Primary osteoarthritis, left ankle and foot (principal); M20.41 Other hammer toe(s) (acquired), right foot; M20.42 Other hammer toe(s) (acquired), left foot; M25.872 Other specified joint disorders, left ankle and foot; E11.42 Type 2 diabetes mellitus with diabetic polyneuropathy; Z79.84 Long term (current) use of oral hypoglycemic drugs | CPT/HCPCS: 73630; 99213 ==

== ENCOUNTER 2024-12-09 11:53 | Outpatient (CLI) | payer MEDICARE, MEDICAID, SELFPAY ==
--- NOTE | 2024-12-09 12:00 | XR_ITS ---
WS: [email or web address] XR shoulder LT min 2V* [id number] REASON FOR EXAM: L ARM PAIN FINDINGS: No fracture or focal bone lesion. There is mild narrowing of the acromioclavicular joint space with mild subchondral sclerosis and osteophytosis. The glenohumeral joint space is not well demonstrated. There may be mild/moderate narrowing. There is mild/moderate subchondral sclerosis of the glenoid. There is mild osteophytosis of the humeral head. There is a corticated bony body overlying the humeral acromial interval. There is significant sclerosis and cystic change in the greater tuberosity. XR/XR shoulder LT min 2V* [id number] IMPRESSION: Mild osteoarthritis of the acromioclavicular joint. Mild to moderate osteoarthritis of the glenohumeral joint. There is significant rotator cuff arthropathy. Some of the bony change in the g reater tuberosity is secondary to previous rotator cuff tendon repair. The examination is relatively stable compared to 05/15/2023.
--- NOTE | 2024-12-09 12:00 | XR_ITS ---
WS: [email or web address] [id number] REASON FOR EXAM: LEFT ARM PAIN FINDINGS: The humerus is intact without fracture. No periosteal reaction. No metallic foreign body. XR/[place] [id number] IMPRESSION: No acute abnormality.
== END 2024-12-09 11:54 | disposition home or self-care (01) ==
PROVIDERS: Absent Provider Physician Assistant; PCP Nurse Practitioner Family; Visit Provider Nurse Practitioner Family
DX: M79.602 Pain in left arm (principal); M19.012 Primary osteoarthritis, left shoulder; R93.6 Abnormal findings on diagnostic imaging of limbs
CPT/HCPCS: 73030; 73060

== ENCOUNTER → 2024-12-24 09:55 | Outpatient (BNVA) | payer MEDICARE, MEDICAID, SELFPAY | PROVIDERS: PCP Nurse Practitioner Family; Visit Provider Student in an Organized Health Care Education/Training Program | DX: M19.011 Primary osteoarthritis, right shoulder (principal); M75.41 Impingement syndrome of right shoulder | CPT/HCPCS: 20610; 77002; J3301; J9999 ==

== ENCOUNTER → 2025-01-26 14:39 | Outpatient (BNVA) | payer MEDICARE, MEDICAID, SELFPAY | PROVIDERS: PCP Nurse Practitioner Family; Visit Provider Physician Assistant | DX: M75.42 Impingement syndrome of left shoulder (principal); M19.019 Primary osteoarthritis, unspecified shoulder | CPT/HCPCS: 20610; 73030; 99213; J3301; J9999 ==

== ENCOUNTER → 2025-01-27 12:56 | Outpatient (BNVA) | payer MEDICARE, MEDICAID, SELFPAY | PROVIDERS: PCP Nurse Practitioner Family; Visit Provider Dermatology | DX: L82.1 Other seborrheic keratosis (principal); D22.5 Melanocytic nevi of trunk; L73.8 Other specified follicular disorders; I83.93 Asymptomatic varicose veins of bilateral lower extremities; D22.71 Melanocytic nevi of right lower limb, including hip; D48.5 Neoplasm of uncertain behavior of skin; L57.0 Actinic keratosis | CPT/HCPCS: 11102; 17000; 99203 ==

== ENCOUNTER → 2025-03-30 08:41 | Outpatient (BNVA) | payer MEDICARE, MEDICAID, SELFPAY | PROVIDERS: PCP Nurse Practitioner Family; Visit Provider Student in an Organized Health Care Education/Training Program | DX: M75.42 Impingement syndrome of left shoulder (principal); M19.012 Primary osteoarthritis, left shoulder | CPT/HCPCS: 99213 ==

== ENCOUNTER 2025-04-22 08:03 | Outpatient (CLI) | payer MEDICARE, MEDICAID, SELFPAY ==
--- NOTE | 2025-04-22 08:00 | IR_ITS ---
WS: [email or web address] LEFT SHOULDER ARTHROGRAM UNDER FLUOROSCOPY. PRIOR TO MRI EVALUATION. HISTORY: left shoulder pain COMPARISON: Radiograph 01/27/2020 FLUOROSCOPY TIME: 0min [id number] # of spot films: 2 Procedure, risks and complications were explained to the patient. Consent has been obtained. Under fluoroscopic guidance the skin is marked over the medial superior third of the humeral head, cleansed with ChloraPrep and anesthetized with lidocaine. 22- gauge spinal needle is inserted to the cortex of the humeral head. Test injection with Omnipaque reveals the needle is appropriately positioned in the joint. A mixture of 10 cc sterile saline, 5 cc Omnipaque and 0.1 mmol gadolinium are injected under fluoroscopic guidance. Patient tolerated the joint distention well. No complications. Distention of the joint space. Contrast extends extra-articular through a tear within the supraspinatus tendon distally. There are additional smaller tears identified more centrally in the supraspinatus tendon. Mild AC joint arthropathy. IR/IR arthrogram shoulderLT [id number] IMPRESSION: Uncomplicated LEFT shoulder joint injection prior to MRI.
--- NOTE | 2025-04-22 08:08 | MR_ITS ---
WS: [email or web address] MRI LEFT SHOULDER ARTHROGRAM HISTORY: left shoulder pain, fall 2 to 3 months ago. Prior surgery. COMPARISON: None available. TECHNIQUE: Pre and postcontrast imaging. Gadolinium mixture was injected under fluoroscopy. Coronal T1 fat sat, sagittal T2 fat sat, coronal T2 fat sat, axial proton density, axial T1 nonfat saturation are submitted. Prearthrogram: Micrometallic artifact in the soft tissues from prior surgery. Moderate AC joint arthropathy. Mild osteophyte encroachment upon the supraspinatus muscle and tendon. Fluid in the subacromial and subdeltoid bursa. Mild subacromial impingement by an osteophyte along the distal undersurface of the acromion. No os acromiale. Biceps tendon is not definitely identified in the bicipital groove. There is a rounded structure near the bicipital groove but it may be from calcific tendinitis. Large joint effusion. No fracture or marrow edema. Moderate atrophy of the supraspinatus and infraspinatus muscles which have progressed since the prior study. Significant bursal and articular surface fraying of the distal supraspinatus tendon. No definite tear. There is no full-thickness tear or retra ction. There is a large insertion site tear of the infraspinatus tendon. Tendon is retracted several centimeters. Mild diffuse subscapularis tendinopathy but no tear. Intrasubstance degeneration and fraying of the labrum. No definite tear is identified. Extensive subchondral cystic changes in the humeral head. Anchors noted in the humeral head from prior rotator cuff repair. Post arthrogram: Large amount of the intra-articular contrast extends into the subacromial subdeltoid bursa. Well-circumscribed low signal mass noted within the joint effusion is probably from calcific tendinitis or loose body. Contrast extends along the supraspinatus and infraspinatus tendons. Large infraspinatus tendon tear. No definite tear was noted on the precontrast imaging. Supraspinatus tendon tear is identified on the post arthrogram imaging. There are several tears in the distal tendon along with interstitial extension of the contrast along the tendon. Additional contrast extends along the subscapularis tendon. Interstitial extension of tear along the tendon. This tear was also not identified on the precontrast imaging. No additional labral abnormality. MR/MR shoulder LT wo/w con [id number] IMPRESSION: 1. Moderate AC joint arthropathy. 2. Large tear with retraction involving the infraspinatus tendon. 3. Additional smaller distal insertion site tears of the subscapularis and sup raspinatus muscles with interstitial extension of contrast. Tears are best seen on the post arthrogram imaging. 4. Large amount of intra-articular contrast extends extra-articular through th e tendon tears. 5. Prior rotator cuff repair. Anchors are noted in the humeral head. 6. Large joint effusion. 7. No fracture. 8. Moderate atrophy of the supraspinatus and infraspinatus muscles. Progressed atrophy since the prior exam. 9. Extensive subchondral cystic changes involving the humeral head. 10. Calcific tendinitis versus loose body in the joint fluid.
[2025-04-22] MEDS: gadobenate dimeglumine 20 mL vial 3 ML IV (11:37)
== END 2025-04-22 08:04 | disposition home or self-care (01) ==
LOC: RAD 08:05
PROVIDERS: PCP Nurse Practitioner Family; Visit Provider Student in an Organized Health Care Education/Training Program
DX: M19.012 Primary osteoarthritis, left shoulder (principal); M75.42 Impingement syndrome of left shoulder; M75.102 Unspecified rotator cuff tear or rupture of left shoulder, not specified as traumatic
CPT/HCPCS: 23350; 73223; 77002; A9577

== ENCOUNTER → 2025-05-04 15:34 | Outpatient (BNVA) | payer MEDICARE, MEDICAID, SELFPAY | PROVIDERS: PCP Nurse Practitioner Family; Visit Provider Student in an Organized Health Care Education/Training Program | DX: M75.102 Unspecified rotator cuff tear or rupture of left shoulder, not specified as traumatic (principal); M75.42 Impingement syndrome of left shoulder; M75.22 Bicipital tendinitis, left shoulder; M24.012 Loose body in left shoulder; M19.012 Primary osteoarthritis, left shoulder | CPT/HCPCS: 99214 ==

== ENCOUNTER → 2025-05-30 09:29 | Outpatient (BNVA) | payer MEDICARE, MEDICAID, SELFPAY | PROVIDERS: PCP Nurse Practitioner Family; Visit Provider Podiatrist Foot & Ankle Surgery | DX: M20.41 Other hammer toe(s) (acquired), right foot (principal); M20.42 Other hammer toe(s) (acquired), left foot; E11.42 Type 2 diabetes mellitus with diabetic polyneuropathy; M19.072 Primary osteoarthritis, left ankle and foot; M25.872 Other specified joint disorders, left ankle and foot; Z79.84 Long term (current) use of oral hypoglycemic drugs | CPT/HCPCS: 99213 ==

== ENCOUNTER 2025-07-21 08:00 | Day surgery (SDC) | payer MEDICARE, MEDICAID, SELFPAY ==
[2025-07-21] VITALS (13 sets, daily range): BP systolic 121–153; BP diastolic 54–83; PULSE 71–81; RESP 12–20; TEMP 36.1–36.8; O2SAT 91–100; BMI 28.6
--- NOTE | 2025-07-21 08:59 | W.PM.OPSFHP ---
Same Day Surgery H&P Indication for Procedure/HPI DATE OF PROCEDURE: July 21, 2025 CHIEF COMPLAINT/INDICATIONFOR SURGICAL PROCEDURE: Left shoulder AC joint arthritis, rotator cuff tear, subacromial impingement, possible loose body, biceps tendinitis PREOP DIAGNOSIS: Left shoulder AC joint arthritis, rotator cuff tear, subacromial impingemen PLANNED PROCEDURE: Operation Date: 07/21/25 10:00 Proposed Procedures p Arthroscopic Shoulder Subacromial Decomp Arthroscopic Shoulder Subacromial Decompression(Left) - DO arias Mattson Distal Clavicle Resection AC Joint Resection(Left) - DO arias Mattson rotator cuff debridement versus repair(Left) - DO arias Mattson Shoulder Arthroscopy w/ Removal Foreign Body(Left) - DO arias Mattson biceps tentomy versus tenodesis(Left) - DO arias Mattson Subacromial Ballon Spacer(Left) - Pb Stewart DO Medications/Allergies* Home Medications ?Medication ?Instructions ?Recorded ?Confirmed ?Type levothyroxine 50 mcg capsule 50 mcg PO QPM 07/12/22 07/20/25 History metformin 500 mg tablet 500 mg PO DAILY 07/12/22 07/20/25 History ascorbic acid (vitamin C) 1,000 mg 1 g PO DAILY 09/02/23 07/20/25 History capsule biotin 10,000 mcg chewable tablet 10,000 mcg PO DAILY 09/02/23 07/20/25 History (Hair, Skin and Nails (biotin)) garlic 1,000 mg capsule 1,000 mg PO DAILY 09/02/23 07/20/25 History aspirin 81 mg tablet,delayed 81 mg PO DAILY 12/30/23 07/20/25 History release (Adult Low Dose Aspirin) cyclobenzaprine 5 mg tablet 5 mg PO QPM 12/30/23 07/20/25 History atorvastatin 80 mg tablet (Lipitor) 80 mg PO DAILY 05/30/25 07/20/25 History lisinopril 2.5 mg tablet 2.5 mg PO QPM 05/30/25 07/20/25 History Allergies/Adverse Reactions Allergy/AdvReac Type Severity Reaction Status Date / Time Penicillins Allergy rash Verified 05/30/25 09:32 Pertinent History/Comorbid Conditions* Medical History (Updated 05/07/25 @ 21:07 by Pb Stewart DO) Diabetes Social History Smoking and tobacco/nicotine status: former use of tobacco/nicotine Alcohol intake: never Substance/Drug Use: never Pertinent Exam Findings alert, oriented x 3, operative site marked and procedure specific exam findings Please refer to detailed orthopedic examination on 05/04/2025 listed below: Left shoulder: Examination of the cervical spine reveals no pain with range of motion. There is no pain with palpation over the spinous processes or the paraspinal musculature. A negative Spurlings test is noted. There is some tenderness over the trapezius muscle on the left. There is no scapular tenderness. Exam of both upper extremities shows no pain on range of motion of the elbows wrists or hands. There is full range of motion of these joints. The left shoulder shows pain on range of motion, primarily abduction as well as forward flexion. There is pain on abduction against resistance, pain over the leading edge of the acromion. There is marked pain near the AC joint on the left compared to the right. positive Crossover arm test reveals pain directly over the AC joint. There is full internal and external rotation with 5/5 strength noted with the elbows at the side. There is pain with Jobes test with weakness 4/5, A positive Massey impingement test is noted, positive [place]'s Recommendations Risks and benefits of procedure reviewed and Patient/family agree to proceed Surgery/Procedure today Other Plans: Plan to proceed to the OR today for left shoulder diagnostic and surgical arthroscopy with subacromial decompression, AC joint resection, rotator cuff debridement versus repair, possible graft augmentation, possible loose body removal, possible biceps tenotomy versus tenodesis, possible subacromial balloon spacer, possible biologic tuboplasty. Patient understands the ins and outs procedure the risk benefits complication alternatives surgical nonsurgical treatment options. Understanding risk of surgery patient elects proceed with surgical invention. All questions answered at this time. Coding Level of Care Code Acute Code for g Fwd
[2025-07-21] MEDS: acetaminophen 1,000 MG/100 ML PIGGYBACK 400 MG IV (09:05)
--- NOTE | 2025-07-21 09:37 | ANES.PREANE2 ---
Pre-Anesthetic Assessment Height/Weight: Height 1.63 m Weight 75.75 kg Temp Pulse Resp BP Pulse Ox O2 Del Method 98.3 F 77 16 136/79 96 Room Air 07/21/25 08:29 07/21/25 08:29 07/21/25 08:29 07/21/25 08:29 07/21/25 08:29 07/21/25 09:08 Preop Diagnosis: Left shoulder AC joint arthritis, rotator cuff tear, subacromial impingemen Operation Date: 07/21/25 10:00 Proposed Procedures p Arthroscopic Shoulder Subacromial Decomp Arthroscopic Shoulder Subacromial Decompression(Left) - Pb Terry, DO s Distal Clavicle Resection AC Joint Resection(Left) - Pb Terry, DO s rotator cuff debridement versus repair(Left) - Pb [place] DO s Shoulder Arthroscopy w/ Removal Foreign Body(Left) - Pb [place], DO s biceps tentomy versus tenodesis(Left) - Pb Terry, DO s Subacromial Ballon Spacer(Left) - Pb Terry, DO Familial anesthetic complications: None Was Beta [place] taken within 24 hours: N/A Was Clonidine taken within 24 hours: N/A Last intake: Intake Last Liquid Date 07/20/25 Last Liquid Time 18:00 Last Solid Date 07/20/25 Last Solid Time 18:00 Social No alcohol and No tobacco Exam alert, oriented x 3, clear to auscultation bilaterally and regular rate & rhythm Airway Mallampati: Class II CV/HEM Hypertension Metabolic Diabetes Mellitus and Thyroid Disease Anesthetic Plan ASA status: 3 Anesthesia: General and Regional (specify below) Risk of > 500 ml blood loss (7ml/kg in children): No Medications/Allergies Home Medications ?Medication ?Instructions ?Recorded ?Confirmed ?Last Taken ?Type levothyroxine 50 mcg capsule 50 mcg PO QPM 07/12/22 07/20/25 07/20/25 History metformin 500 mg tablet 500 mg PO DAILY 07/12/22 07/20/25 07/20/25 History ascorbic acid (vitamin C) 1,000 mg 1 g PO DAILY 09/02/23 07/20/25 07/17/25 History capsule biotin 10,000 mcg chewable tablet 10,000 mcg PO DAILY 09/02/23 07/20/25 07/20/25 History (Hair, Skin and Nails (biotin)) garlic 1,000 mg capsule 1,000 mg PO DAILY 09/02/23 07/20/25 07/16/25 History aspirin 81 mg tablet,delayed 81 mg PO DAILY 12/30/23 07/20/25 07/16/25 History release (Adult Low Dose Aspirin) cyclobenzaprine 5 mg tablet 5 mg PO QPM 12/30/23 07/20/25 07/19/25 History ondansetron 8 mg disintegrating 8 mg PO .q6 PRN nausea and 04/17/24 07/20/25 Unknown Rx tablet vomiting #14 tabs sole supports #1 ea 04/19/24 05/30/25 Unknown Rx meloxicam 15 mg tablet 15 mg PO DAILY #30 tabs 11/30/24 07/20/25 Unknown Rx Diabetic shoes With 1 pair of #1 ea 05/30/25 05/30/25 Unknown Rx custom molded accommodative orthotics atorvastatin 80 mg tablet (Lipitor) 80 mg PO DAILY 05/30/25 07/20/25 07/20/25 History lisinopril 2.5 mg tablet 2.5 mg PO QPM 05/30/25 07/20/25 07/19/25 History Allergies Allergy/AdvReac Type Severity Reaction Status Date / Time Penicillins Allergy rash Verified 05/30/25 09:32 Current Medications Generic Name Dose Route Start Last Admin Trade Name Freq PRN Reason Stop Dose Admin Sodium Chloride 1,000 mls @ 30 mls/hr 07/21/25 08:15 07/21/25 09:00 Sodium Chloride 0.9% IV 07/22/25 08:14 30 mls/hr .Q24H JAG Administration PFSH Anesthesia Medical History Diabetes Social History Smoking and tobacco/nicotine status: former use of tobacco/nicotine Alcohol intake: never Substance/Drug Use: never Anesthesia Procedures Nerve Block Nerve Block 1: Main Anesthesia: general anesthesia Time Out Performed: Yes Consent: requested by attending/covering physician, from patient, from other, risks and benefits reviewed and patient agrees to proceed Nerve block location: interscalene (L) Anesthesia monitors applied: pulse oximetry, EKG, BP cuff and oxygen Nerve block position: semi sitting Anesthetic Used: ropivicaine 0.5% (20 ml) and with decadron (4 mg) Ultrasound used to: recognize landmarks, visualize and ID brachial plexus, in supraclavicular region and visualize and ID interscalene groove Interscalene/Femoral BLK: 2 stimuplex 22 g needle used for position and inplane approach, visualize local anesthetic spread and no vascular puncture identified Injection: neg aspiration of heme Patient Tolerated Procedure: well Complications: none
--- NOTE | 2025-07-21 09:47 | SUR.PREOP ---
09:15 LEFT INTRASCALENE NERVE BLOCK PERFORMED BY DOCTOR Luevano USING 20ml OF ROPIVICAINE 0.5% WITH DECADRON 3MG . PT ON SURG PHYSICIAN ASST SHOWING NSR. TOLERATED PROCEDURE WELL.
--- NOTE | 2025-07-21 12:16 | P.BOP_ITS ---
Date of Procedure: 07/21/2025 Surgeon: Pb Stewart DO Pre Billing Specialist(s): Carlitos Stewart PA-C Procedure(s) performed: The Findings of the procedure(s): [] Estimated blood loss: [] Specimen(s) removed: [] Post-operative diagnosis: []
--- NOTE | 2025-07-21 12:16 | P.OP_ITS ---
Operative Report Date of procedure: July 21, 2025 Surgeon: Pb Stewart DO Biometrics Analyst: Carlitos Stewart PA-C: PA was necessary for assistance in this case with shoulder positioning to execute the procedure, assistance with instrumentation, as well as implant fixation when necessary, assist with wound closure and dressing application. Procedure: Preoperative diagnosis: Left shoulder AC joint arthritis, rotator cuff tear, subacromial impingement, possible loose body, biceps tendinitis Post-op diagnosis:? Left shoulder glenohumeral arthritis, partial labral tear, partial subscapularis tear, subacromial bursitis, loose body, old sutures/implants, rotator cuff large tear, AC joint arthritis Procedure done: Left?shoulder?diagnostic and surgical arthroscopy with arthroscopic rotator cuff repair(large) Left?shoulder?diagnostic and surgical arthroscopy glenohumeral joint chondroplasty Left?shoulder?diagnostic and surgical arthroscopy labral debridement Left?shoulder?diagnostic and surgical arthroscopy acromioclavicular joint resection Left?shoulder?diagnostic and surgical arthroscopy subacromial decompression (acromioplasty and bursectomy) Left shoulder diagnostic and surgical arthroscopy with removal of hardware of suture and suture anchor implants from previous repair Left shoulder diagnostic and surgical arthroscopy with loose body removal Left shoulder diagnostic and surgical arthroscopy with subscapularis tendon debridement Left shoulder diagnostic and surgical arthroscopy with subacromial balloon spacer performed Surgeon: Pb Stewart DO Estimated blood loss: [15]mL IV fluids: 800 mL Implants: Arthrex 4.75 double row speed bridge kit Arthrex 2 x 5.5 mm bio composite swivel locks [facility] inspace medium sized subacromial balloon spacer Complications: None Condition: stable Disposition: same day Brief History: Patient been seen and worked up in the outpatient setting for?Left?shoulder?pain.? Pt had an MRI which showed findings below.? Patient's failed conservative treatment and has weakness.? We talked about treatment options far as nonoperative and operative intervention..? We talked about risk benefits complication alternatives surgical nonsurgical treatment options.? Understanding risk of surgery pt agrees to proceed with surgical intervention.? All questions have been answered at this time.? Patient elects proceed with surgery and consent obtained in preoperative holding area for left shoulder diagnostic and surgical arthroscopy with subacromial decompression, AC joint resection, rotator cuff debridement versus repair, possible graft augmentation, possible loose body removal, possible biceps tenotomy versus tenodesis, possible subacromial balloon spacer, possible biologic tuberoplasty. MR/MR shoulder LT wo/w con [id number] IMPRESSION: 1. Moderate AC joint arthropathy. 2. Large tear with retraction involving the infraspinatus tendon. 3. Additional smaller distal insertion site tears of the subscapularis and supraspinatus muscles with interstitial extension of contrast. Tears are best seen on the post arthrogram imaging. 4. Large amount of intra-articular contrast extends extra-articular through the tendon tears. 5. Prior rotator cuff repair. Anchors are noted in the humeral head. 6. Large joint effusion. 7. No fracture. 8. Moderate atrophy of the supraspinatus and infraspinatus muscles. Progressed atrophy since the prior exam. 9. Extensive subchondral cystic changes involving the humeral head. 10. Calcific tendinitis versus loose body in the joint fluid. Procedure: Patient seen evaluated in the preoperative holding area.? Consent reviewed and signed with patient.? Once again reviewed patient's MRI results as well as? planned surgical intervention.? Correct extremity marked.? Patient seen evaluated by anesthesia department received regional anesthesia.? Once ready for surgery was taken back to the operative suite.? Patient then subsequently underwent anesthesia per the anesthesia department was transported onto the OR table.? Patient was then placed into a lateral decubitus position with a beanbag and was appropriately secured to the bed.? All bony prominences well-padded.? Patient then had the?Left?upper extremity was then prepped and draped in standard orthopedic fashion.? Patient received appropriate preoperative antibiotics.? Final timeout performed. The?Left?upper extremity was then held in hanging from traction utilizing sterile technique.? Next started with standard diagnostic and surgical arthroscopy with posterior portal position introduced arthroscope into the glenohumeral joint.? Visualized the glenohumeral joint I then introduced a spinal needle within the rotator cuff interval to confirm appropriate anterior portal placement.? Once this was confirmed I then made my small incision and then introduced my arthroscopic shaver into the glenohumeral joint.? After thorough debridement is already evident that patient had already had a prior release or tenodesis of the bicep from previous surgery as there is no long head of the biceps tendon intra-articularly. As a result no tenotomy or tenodesis was performed. Next I evaluated the subscapularis tendon which grossly intact with good tension but did have some generalized fraying on the superior border this was just gently debrided with arthroscopic shaver there was no evidence of an upper border tear requiring a repair. ?Next there was significant labral tearing at biceps anchor and circumferential.? ? I then subsequently utilized a a arthroscopic shaver and thermal wand to perform a labral debridement.? This point time I then visualized the glenohumeral joint.? 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 This point in time there was some unstable articular cartilage and as a result I utilized an arthroscopic shaver to perform glenohumeral joint chondroplasty to stable articular tissue. Axillary recess was free of loose bodies from viewing the posterior portal.? Next a visualized the rotator cuff superiorly and there was found to be a large tear of the supra and involving the infra spinatus rotator cuff tendon. Patient had excess sutures in the previous repair site. I utilized a spinal needle to jasiel this location.? ?This completed my work within the glenohumeral joint all fluid was suctioned free of the joint.? ?Next I reintroduced the arthroscope posteriorly.? And went to the subacromial space.? I established my lateral working portal at the site of which my spinal needle was marking of the rotator cuff tear.? Thermal wand was then introduced laterally and then I subsequently performed extensive bursectomy of the suba cromial space.? At this point in time after completed the bursectomy was clearly evident patient had a floating large loose body which was then grabbed with an arthroscopic tissue grasper and was removed this was roughly 1 cm in size. Next the patient had a large anterior bone spur.? At this point time I proceeded with my AC joint resection thermal wand was used and track to the anterior edge of the acromion and then tracked all the way to the AC joint.? Once identified the AC joint this was again had scar tissue and very arthritic in nature.? Thermal wand was placed anteriorly to establish appropriate plane for AC joint resection.? Once appropriate margins and anterior inferior and anterior capsule was released I then introduced arthroscopic shaver and a bur and performed AC joint resection of both the acromion to cope plane at the AC joint and a distal clavicle resection was then performed totaling 1 cm in size and was confirmed.? This completed my AC joint resection and I then introduced the arthroscopic shaver laterally while continuing to view posteriorly.? I then performed an acromioplasty to complete my subacromial decompression prior to addressing the rotator cuff tear. Next at this point I evaluated the rotator cuff tear. At this point in time I debrided all nonviable rotator cuff tissue to stable rotator cuff tissue which again confirmed this being a large tear that was retracted to the glenohumeral joint. This did involve the supra and infra. This would be amendable for a double row speed bridge repair. At this point in time I utilized an arthroscopic suture grasper and removed all excess suture and suture anchor implants that was going to be in the way of the repair. Next I then debrided the rotator cuff for full evaluation of the quality of the rotator cuff tendon which actually was amenable for repair and was able to grab this with an arthroscopic tissue grasper and was able to perform releases with the thermal wand to have good rotator cuff tendon excursion there was a delaminated layer of both the superior and inferior component which we incorporated both when we were performing our speed bridge repair. At this point in time I utilized an arthroscopic power rasp to decorticate the entire rotator cuff footprint once I was satisfied with this I then subsequently placed a spinal needle and did manage angle directly over the medial footprint right off the acromion and then subsequently a sharp scalpel incision blunt probe and then subsequently utilized a punch and then placed 4.75 swivel lock 2 medial row anchors with 2 suture tapes. These were placed to get excellent fixation. I then cut this wedge of the suture and then passed for individual passes with care to passed through the inferior leaflet and superior leaflet of the rotator cuff starting from anterior to posterior having a good spread along the large rotator cuff tear. At this point time all sutures were then grabbed and had good mobilization. I then cleaned off the lateral edge of the greater tuberosity for my lateral row anchor. At this point in time I subsequently loaded sutures 1 and 3 and placed them and an anchor anteriorly a punch and then a 4.75 swivel lock was advanced unfortunately due to patient's soft bone quality this did not have great fixation and as a result the anchors were removed and then subsequently placed a 5.5 mm bio composite swivel lock which had good squeak and fixation and was tugged and had excellent fixation of the rotator cuff and security of the implant. I then subsequently in the same fashion grabbed sutures 2 and 4 and lower this for posterior anchor which was then subsequently loaded and punch and once again had soft bone in this area given this I had more real estate anteriorly and subsequently at that time this pulled over the infra spinatus posterior component more anteriorly where it was anatomically planned on being subsequently punched and then placed a 5.5 swivel lock which had excellent fixation and was stressed. At this point in time I then took the rotator cuff through range of motion and it moved as a unit and had good rotator cuff opposition on the rotator cuff prepped footprint. At this point in time all excess sutures were then subsequently cut. Given patient's age as well as soft bone quality and this being a revision repair I then subsequently elected to place a subacromial balloon spacer as patient did have intact subscapularis tendon as a backup due to this large repair this would accommodate for once again encouraging rotator cuff compression aiding in the repair. Patient's tendon quality was good enough and did not need any augmentation as well as there was no bony footprint to accommodate for any further graft augmentation. At this point in time I elected to perform a subacromial balloon spacer utilizing Ronald's in space system I measured this out for a medium. I then subsequently placed the Ortho in space in the appropriate depth and position the solid waste facility supervisor guide was then subsequently removed and confirmed to being in appropriate position directly over top of the rotator cuff repair. This was then insufflated with 20 mL of normal saline and then subsequently roughly 4 mL were removed per Ronald's in space protocol to have satisfactory placement position and as a result left with 16 mL per Slim in space recommendations. At this point in time I then subsequently released the deploying device and the device solid waste facility supervisor was then subsequently removed and the balloon was confirmed to be in good location and position and taken through range of motion which the balloon maintain good positioning throughout. ?I then switched the arthroscope to the lateral portal confirm satisfactory rotator cuff repair and subacromial balloon placement as well as satisfactory distal clavicle excision and subacromial decompression. This completed the surgery.? All fluid was suctioned from the?shoulder.? All instruments were removed.? The lateral incision was then closed with nylon stitches.? As well as the portal sites closed with portal nylon stitches.? Xeroform 4 x 4's ABD and tape was then applied to the?Left?shoulder?and was placed into a?shoulder?abd uction pillow sling for rotator cuff repair.? Patient was then awakened from anesthesia and then taken back to PACU in stable condition.? Patient tolerated procedure without any issues. Disposition: Patient taken back in stable condition recovering well.? Dressings on in place clean dry and intact.? Will be nonweightbearing to the?Left?upper extremity.? Follow rotator cuff repair protocol.? Patient to follow-up with me in the office in 2 weeks.? Patient will receive appropriate discharge instruction as well as pain medication postoperatively.? All questions answered.? We will contact the office for any questions or concerns.
--- NOTE | 2025-07-21 12:37 | W.PM.BPON ---
Date of Procedure: [July 21, 2025] Surgeon: [Dr. Stewart DO] Broadband Installer(s): [Carlitos Stewart PA-C] Procedure(s) performed: [ Left shoulder arthroscopy Labral debridement Glenohumeral chondroplasty Subscapularis debridement Subacromial decompression Loose body removal Rotator cuff repair (large) Subacromial balloon spacer Suture removal/implant] Findings of the procedure(s): [Left shoulder glenohumeral arthritis, partial labral tear, partial subscapularis tear, subacromial bursitis, loose body, old sutures/implants, rotator cuff large tear. Procedure went well and his plan] Estimated blood loss: [15 mL] Specimen(s) removed: [N/A] Post-operative diagnosis: [Left shoulder glenohumeral arthritis, partial labral tear, partial subscapularis tear, subacromial bursitis, loose body, old sutures/implants, rotator cuff large tear.]
--- NOTE | 2025-07-21 12:43 | PM.PACU ---
PACU note Narrative: Patient is a 69-year-old female that just underwent a left shoulder arthroscopy. Patient transferred to PACU in stable condition. Pain is well controlled. shoulder Dressing on , dry and in place. Patient's operative arm is in a shoulder immobilizer. Patient is awake and alert and able to respond to my questions accordingly. Patient's fingers are warm with good perfusion. Normal cap refill under 2 seconds. Radial pulse 2+. unable to assess further range of motion in arm due to sling. Unable to assess sensation due to residual localized anesthetic. Exam: awake Disposition: discharged
== END 2025-07-21 14:15 | disposition home or self-care (01) ==
PROVIDERS: PCP Student in an Organized Health Care Education/Training Program; Visit Provider Student in an Organized Health Care Education/Training Program
PROC: (CPT 29826; principal; 2025-07-21 10:00)
PROC: (CPT 29827; 2025-07-21 10:00)
PROC: (CPT 29805; 2025-07-21 10:00)
PROC: (CPT 29999; 2025-07-21 10:00)
DX: M75.42 Impingement syndrome of left shoulder (principal); M75.102 Unspecified rotator cuff tear or rupture of left shoulder, not specified as traumatic; M13.812 Other specified arthritis, left shoulder; M75.22 Bicipital tendinitis, left shoulder; S43.432A Superior glenoid labrum lesion of left shoulder, initial encounter; X58.XXXA Exposure to other specified factors, initial encounter; M24.012 Loose body in left shoulder; Z79.84 Long term (current) use of oral hypoglycemic drugs; Z79.82 Long term (current) use of aspirin; E11.9 Type 2 diabetes mellitus without complications; E07.9 Disorder of thyroid, unspecified; Z87.891 Personal history of nicotine dependence
CPT/HCPCS: 29827; 29826; 29823; 29824; 36416; 82962; C1713; C1889; J0131; J0169; J1100; J1885; J2405; J2704; J2795; J3010; J3490; J7030; J9999

== ENCOUNTER → 2025-08-03 15:13 | Outpatient (BNVA) | payer MEDICARE, MEDICAID, SELFPAY | PROVIDERS: PCP Clinical Nurse Specialist Adult Health; Visit Provider Physician Assistant | DX: Z98.890 Other specified postprocedural states (principal) | CPT/HCPCS: 99024 ==

== ENCOUNTER 2025-08-06 05:00 | Outpatient (CLI) | payer MEDICARE, MEDICAID, SELFPAY | END 2025-08-06 05:01 | disposition home or self-care (01) | LOC: SPT 08-29 14:31 | PROVIDERS: Visit Provider Physician Assistant | DX: Z46.89 Encounter for fitting and adjustment of other specified devices (principal); M25.561 Pain in right knee | CPT/HCPCS: 20610; J3301; J9999; L1851 ==

== ENCOUNTER → 2025-08-24 11:13 | Outpatient (BNVA) | payer MEDICARE, MEDICAID, SELFPAY | PROVIDERS: PCP Clinical Nurse Specialist Adult Health; Visit Provider Physician Assistant | DX: M17.11 Unilateral primary osteoarthritis, right knee (principal) | CPT/HCPCS: 73560; 73565 ==

== ENCOUNTER → 2025-08-30 08:47 | Outpatient (BNVA) | payer MEDICARE, MEDICAID, SELFPAY | PROVIDERS: Visit Provider Clinical Nurse Specialist Adult Health | DX: E11.9 Type 2 diabetes mellitus without complications (principal) | CPT/HCPCS: 80053; 80061; 82607; 83036; 85025 ==

== ENCOUNTER → 2025-08-31 11:19 | Outpatient (BNVA) | payer MEDICARE, MEDICAID, SELFPAY | PROVIDERS: Visit Provider Student in an Organized Health Care Education/Training Program | DX: Z98.890 Other specified postprocedural states (principal) | CPT/HCPCS: 99024 ==

== ENCOUNTER 2025-09-05 05:00 | Outpatient (RCR) | payer MEDICARE, MEDICAID, SELFPAY | END 2025-10-05 23:59 | disposition home or self-care (01) | LOC: TPT 05:00 | PROVIDERS: Visit Provider Student in an Organized Health Care Education/Training Program | DX: Z98.890 Other specified postprocedural states (principal) | CPT/HCPCS: 97161 ==

== ENCOUNTER → 2025-09-14 10:26 | Outpatient (BNVA) | payer MEDICARE, MEDICAID, SELFPAY | PROVIDERS: PCP Family Medicine; Visit Provider Podiatrist Foot & Ankle Surgery | DX: E11.8 Type 2 diabetes mellitus with unspecified complications (principal); M20.41 Other hammer toe(s) (acquired), right foot; M20.42 Other hammer toe(s) (acquired), left foot; E11.42 Type 2 diabetes mellitus with diabetic polyneuropathy; M19.072 Primary osteoarthritis, left ankle and foot; M25.872 Other specified joint disorders, left ankle and foot; Z79.84 Long term (current) use of oral hypoglycemic drugs; Z98.890 Other specified postprocedural states | CPT/HCPCS: 99024; 99213 ==